=== PATIENT | female | born 1995 | race Caucasian/White ===

== ENCOUNTER 2016-11-07 06:09 | Inpatient (IN) | payer MEDICAID ==
[2016-11-07] MEDS ORDERED: ceFAZolin 2 GM PREMIX (*) 2 GM/50 ML BAG IVPB ONE (06:16)
[2016-11-07] MEDS ORDERED: Sodium Citrate/Citric Acid* 15 ML UDC ONE (07:31)
[2016-11-07] MEDS ORDERED: OXYTOCIN* 10 UNITS/ML 1 ML VIAL ONE (08:58)
[2016-11-07] MEDS ORDERED: Morphine PF AMP (0.5MG/ML)* 5 MG/10 ML AMP ONE (08:58)
[2016-11-07] MEDS ORDERED: Ondansetron INJ* 2 MG/ML VIAL IV PRN ×2 (09:48→09:49)
[2016-11-07] MEDS ORDERED: fentaNYL* 50 MCG/ML 2 ML VIAL (100 MCG VIAL) IV PRN (09:48)
[2016-11-07] MEDS ORDERED: Naloxone* 0.4 MG/ML 1 ML VIAL IV PRN (09:49)
[2016-11-07] MEDS ORDERED: oxyCODONE/Acetamin 5/325 MG* TAB PO PRN (09:49)
[2016-11-07] MEDS ORDERED: Witch Hazel PAD* JAR TOPICAL PRN (10:38)
[2016-11-07] MEDS ORDERED: Acetaminophen TAB* 325 MG PO PRN (10:38)
[2016-11-07] MEDS ORDERED: Dibucaine 1% 28.35 GM TUBE PR PRN (10:38)
[2016-11-07] MEDS ORDERED: Glycerin ADULT SUPP PR PRN (10:38)
[2016-11-07] MEDS ORDERED: Oxytocin in LR* 20 UNITS/1,000 ML BAG IVPB SCH (11:00)
[2016-11-07] MEDS: Ibuprofen TAB* 400 MG PO SCH ×3 (11:03→23:21)
[2016-11-07] MEDS: Nalbuphine* 20 MG/ML 1 ML VIAL IV PRN ×2 (11:36→20:21)
[2016-11-07] MEDS: Docusate CAP* 100 MG PO SCH ×2 (13:59→20:20)
[2016-11-07] MEDS: Simethicone TAB* 80 MG TAB.CHEW PO SCH ×3 (13:59→20:20)
[2016-11-08] MEDS ORDERED: Ibuprofen TAB* 600 MG PO PRN (01:08)
--- NOTE | 2016-11-08 04:06 | OP ---
DATE OF OPERATION: 11/07/16 - ROOM #117 DATE OF : 89 SURGEON: Jarad Neely MD DIRECTOR OF ENTERPRISE STRATEGY: Teresa Franz CNM. ANESTHESIOLOGIST: Dr. Polo Santana ANESTHESIA: Spinal. PRE-OP DIAGNOSIS: 39 weeks and 1 day, prior section, desires elective repeat . POST-OP DIAGNOSIS: 39 weeks and 1 day, prior section, desires elective repeat . OPERATIVE PROCEDURE: Repeat low flap transverse section via Pfannenstiel, uterus closed in 2 layers. ESTIMATED BLOOD LOSS: 600 cc. URINE OUTPUT: 100 cc clear urine. FINDINGS: Viable male in the vertex presentation. Weight was 6 pounds 14 ounces. Apgars are 8 and 9. Clear amniotic fluid. Normal appearing uterus , ovaries and fallopian tubes bilaterally. COMPLICATIONS: None. COUNTS: Sponge, lap, and needle count were correct x2 and the patient was brought to recovery room awake and in stable condition. DESCRIPTION OF PROCEDURE: The patient was brought to the operating room. Once spinal anesthesia was found to be adequate, a Doran catheter was placed under sterile conditions. The patient was prepped and draped in the usual sterile fashion in the dorsal supine position with a leftward tilt. A time-out was performed. The spinal was tested with the Allis clamps and found to be adequate. A Pfannenstiel skin incision was made through the old scar to the underlying layer of fascia. The fascia was incised in the midline and the fascial incision was extended laterally using the Mcdaniel scissors. The fascia was grasped with the Anthony clamps and the rectus muscle was dissected using sharp and blunt dissection. The rectus muscle was found to be in the midline. There was an omental adhesion to the anterior peritoneum. This was clamped with Aileen clamps, incised and tied with a 0-Vicryl suture. Excellent hemostasis was noted. The bladder blade was inserted. The vesicouterine peritoneum was identified and a bladder flap was created. The bladder blade was reinserted. A low-flap transverse incision was made on the uterus to the level of the membranes. The infant was delivered atraumatically from the vertex presentation. Clear amniotic fluid was encountered. The cord was milked , clamped and cut and the infant was handed off to the waiting machine binding folder, Dr. Devapatla. Apgars were 8 and 9. The weight was 6 pounds 14 ounces. The placenta was delivered. The uterus was cleared of all clots and debris and the uterine incision was repaired using 0 Vicryl in a running locked fashion. A second layer of the same suture was used to imbricate and obtain excellent hemostasis. The ovaries and fallopian tubes were examined and found to hemostatic. The abdomen and pelvis were copiously irrigated with warm normal saline. Once again, the uterine incision was examined and found to be hemostatic. The omental adhesion at both ends were examined and found to be hemostatic. The peritoneum was closed using 3-0 Vicryl. The fascia was closed using 0 Vicryl. The subcutaneous tissue was irrigated. Any small bleeders were cauterized with the Bovie and the skin was closed with 4-0 Monocryl in a subcuticular fashion. Steri-Strips were applied. A pressure dressing was applied and the patient was brought to the recovery room awake and in stable condition. A Doran catheter was draining clear urine. [id number]/[facility] #: [id number] MARLO
[2016-11-08] MEDS: oxyCODONE/Acetamin 5/325 MG* TAB PO PRN ×5 (04:19→21:39)
[2016-11-08 08:25] LABS: Hematocrit 35 % (35-47); Hemoglobin 11.6 g/dl (12.0-16.0); Mean Corpuscular HGB Conc 34 g/dl (31-36); Mean Corpuscular Hemoglobin 29 pg (27-31); Mean Corpuscular Volume 87 fL (80-97); Mean Platelet Volume 9 um3 (7.4-10.4); Red Blood Count 4.02 10^6/ul (4.0-5.4); Red Cell Distribution Width 14 % (10.5-15)
[2016-11-08] MEDS: Ferrous Gluconate TAB* 324 MG TAB PO SCH (08:29)
[2016-11-08] MEDS: Simethicone TAB* 80 MG TAB.CHEW PO SCH ×4 (08:45→20:36)
[2016-11-08] MEDS: Docusate CAP* 100 MG PO SCH ×3 (08:45→20:36)
[2016-11-08] MEDS ORDERED: Influenza VAC *QUAD* 2016-17* 0.5 ML SYRINGE IM ONE (09:00)
[2016-11-08] MEDS ORDERED: Tetan/Diph/Pertus SYR(Tdap)* 0.5 ML SYR(BOOSTRIX) use SYR IM ONE (09:00)
[2016-11-09] MEDS: oxyCODONE/Acetamin 5/325 MG* TAB PO PRN ×2 (02:48→08:00)
[2016-11-09] MEDS: Ferrous Gluconate TAB* 324 MG TAB PO SCH ×2 (06:21→09:00)
[2016-11-09] MEDS: Simethicone TAB* 80 MG TAB.CHEW PO SCH (08:03)
[2016-11-09] MEDS: Docusate CAP* 100 MG PO SCH (08:03)
[2016-11-09 08:33] VITALS: BP 108/63
== END 2016-11-09 11:48 | disposition home or self-care (01) | DRG 540 ==
LOC: MCHOB 06:09
PROVIDERS: ADMIT Obstetrics & Gynecology; ATTEND Obstetrics & Gynecology
PROC: 10D00Z1 Extraction of Products of Conception, Low, Open Approach (ICD-10-PCS; principal; 2016-11-07 07:45)
DX: O34.211 Maternal care for low transverse scar from previous cesarean delivery (principal); Z87.891 Personal history of nicotine dependence; Z3A.39 39 weeks gestation of pregnancy; Z37.0 Single live birth
CPT/HCPCS: 36415; 85025; A9270-GY; J0690; J2300; J2590

== ENCOUNTER 2017-01-15 20:33 | Emergency (ER) | payer MEDICAID ==
[2017-01-15 20:36] VITALS: BP 135/45
[2017-01-15] MEDS ORDERED: Polymyx/Trimethoprim OPTH* 10 ML BTL BOTH EYES ONE (20:52)
--- NOTE | 2017-01-15 20:52 | ED ---
Throat Pain/Nasal Congestion - HPI Summary HPI Summary: 21F presents with red eye and discharge since yesterday. She states that she has some yellow drainage yesterday in the left eye and there was crusting and then it spread to the right eye. She states that her eyes feel dry and that feels irritated. She denies any foreign body or change in vision. She does not wear contacts. - History of Current Complaint Chief Complaint: EDEyeProblem Time Seen by Provider: 01/15/17 20:39 - Allergies/Home Medications Allergies/Adverse Reactions: Allergies Allergy/AdvReac Type Severity Reaction Status Date / Time No Known Allergies Allergy Verified 11/06/16 13:24 PMH/Surg Hx/FS Hx/Imm Hx Endocrine/Hematology History: Denies: Hx Anticoagulant Therapy Cardiovascular History: Denies: Hx Hypertension - Surgical History Surgery Procedure, Year, and Place: C section 07/2012 Infectious Disease History: No Infectious Disease History: Denies: History Other Infectious Disease, Traveled Outside the [place] in Last 30 Days - Family History Known Family History: Positive: None, Hypertension - Social History Alcohol Use: None Substance Use Type: Reports: None Smoking Status (MU): Light Every Day Tobacco Smoker Type: Cigarettes Amount Used/How Often: 4 daily Have You Smoked in the Last Year: No Review of Systems Negative: Fever Positive: Drainage, Erythema. Negative: Blurred Vision, Diplopia Negative: Chest Pain Negative: Shortness Of Breath All Other Systems Reviewed And Are Negative: Yes Physical Exam Triage Information Reviewed: Yes Vital Signs On Initial Exam: Initial Vitals Temp Pulse Resp BP Pulse Ox 97.9 F 79 17 135/45 100 01/15/17 20:34 01/15/17 20:34 01/15/17 20:34 01/15/17 20:34 01/15/17 20:34 Vital Signs Reviewed: Yes Appearance: Positive: Well-Appearing Skin: Positive: Warm, Dry Head/Face: Positive: Normal Head/Face Inspection Eyes: Positive: EOMI, MELINDA, Conjunctiva Inflammed ENT: Positive: Normal ENT inspection, Pharynx normal, TMs normal Respiratory/Lung Sounds: Positive: Clear to Auscultation, Breath Sounds Present Cardiovascular: Positive: Normal, RRR Diagnostics - Vital Signs Vital Signs Temp Pulse Resp BP Pulse Ox 01/15/17 20:34 97.9 F 79 17 135/45 100 - Laboratory Lab Statement: Any lab studies that have been ordered have been reviewed, and results considered in the medical decision making process. EENT Course/Dx - Course Course Of Treatment: 21F presents with bilateral eye redness and discharge. started yesterday in left eye and moved to right. states that eyes fell dry and irriated. on exam conjunctiva injected with no visible drainage. denies any foreign body in eye and states no change in vision. does not wear contacts so will treat with polytrim. patient understands and agrees with plan - Differential Diagnoses Differential Diagnoses: Allergic Rhinitis, Conjunctivitis, Corneal Abrasion, URI /Bronchitis - Diagnoses Provider Diagnoses: Conjunctivitis of both eyes Discharge - Discharge Plan Condition: Good Disposition: HOME Patient Education Materials: Conjunctivitis (ED) Referrals: No Primary Care Phys,NOPCP [Primary Care Provider] - Additional Instructions: Place 1 drop in eye four times a day for 7 days Wash hands after touching eye Follow up with ophthalmology if no improvement Return to ED if develop any new or worsening symptoms
== END 2017-01-15 21:07 | disposition home or self-care (01) ==
LOC: ED 20:33
DX: H10.9 Unspecified conjunctivitis (principal)
CPT/HCPCS: 99282

== ENCOUNTER 2017-05-01 08:04 | Emergency (ER) | payer OTHER ==
[2017-05-01 08:13] VITALS: BP 119/70
--- NOTE | 2017-05-01 09:02 | UC ---
Throat Pain/Nasal Moris HPI - HPI Summary HPI Summary: The patient comes in today for: 1. Sore throat: Onset: Yesterday. Palliative/provocative: Swallowing makes it worse. Quality: sharp Region: posterior pharynx. Severity: 8/10 Time: Constant. Associated symptoms: Fevers: None documented. Rhinitis: None. Cough: None. * - History of Current Complaint Chief Complaint: UCGeneralIllness Stated Complaint: SORE THROAT Time Seen by Provider: 05/01/17 08:46 Hx Obtained From: Patient, Family/Agricultural Plow Operator Hx Last Menstrual Period: 04/27/17 - Allergies/Home Medications Allergies/Adverse Reactions: Allergies Allergy/AdvReac Type Severity Reaction Status Date / Time No Known Allergies Allergy Verified 05/01/17 08:08 PMH/Surg Hx/FS Hx/Imm Hx Previously Healthy: Yes Other History Of: Negative For: Anticoagulant Therapy - Surgical History Surgical History: Yes Surgery Procedure, Year, and Place: C section 07/2012, 10/2016 - Family History Known Family History: Positive: Hypertension, Diabetes - Social History Occupation: Unemployed Alcohol Use: None Substance Use Type: None Smoking Status (MU): Light Every Day Tobacco Smoker Type: Cigarettes Amount Used/How Often: 4 daily Have You Smoked in the Last Year: No - Immunization History Most Recent Influenza Vaccination: unknown Most Recent Tetanus Shot: unknown Most Recent Pneumonia Vaccination: none Review of Systems Constitutional: Negative Skin: Negative Eyes: Negative ENT: Sore Throat Respiratory: Negative Cardiovascular: Negative Gastrointestinal: Negative Genitourinary: Negative All Other Systems Reviewed And Are Negative: No Physical Exam Triage Information Reviewed: Yes Appearance: Well-Appearing, No Pain Distress, Well-Nourished Vital Signs: Initial Vital Signs Temp 98.5 F 05/01/17 08:08 Pulse 96 05/01/17 08:08 Resp 16 05/01/17 08:08 BP 119/70 05/01/17 08:08 Pulse Ox 97 05/01/17 08:08 Vital Signs Reviewed: Yes Eyes: Positive: Conjunctiva Clear. Negative: Discharge ENT: Positive: Hearing grossly normal, Pharyngeal erythema. Negative: Nasal congestion, Nasal drainage, TM bulging, TM dull, TM red, Tonsillar swelling, Tonsillar exudate Dental: Negative: Gross Decay/Caries @, Dental Fracture @ Neck: Positive: Supple, Nontender, No Lymphadenopathy. Negative: Nuchal Rigidity Respiratory: Positive: Lungs clear, No respiratory distress, No accessory muscle use. Negative: Rhonchi, Wheezing Cardiovascular: Positive: RRR, No Murmur Abdomen Description: Positive: Nontender, No Organomegaly, Soft. Negative: Distended, Guarding Musculoskeletal: Positive: Strength Intact, ROM Intact, No Edema Neurological: Positive: Alert, Muscle Tone Normal Psychological: Positive: Age Appropriate Behavior, Consolable Skin: Negative: rashes, breakdown Diagnostics - Laboratory Diagnostic Studies Completed/Ordered: Strep (+). Throat Pain/Nasal Course/Dx - Course Course Of Treatment: Patient told of positive strep. Will treat with viscous lidocaine due to her complaint/request. - Differential Dx/Diagnosis Provider Diagnoses: strep pharyngitis Discharge - Discharge Plan Condition: Stable Disposition: HOME Patient Education Materials: Strep Throat (ED) Referrals: No Primary Care Phys,NOPCP [Primary Care Provider] - 1 Week (Please see your primary care provider in about a week to see how well you are doing. If you don't have a primary care provider, please contact the physician referral service. If you can't get in timely, please you may come back to see us until you can. If you get worse, please be seen sooner by us or the ER.) [facility] PHYSICIAN REFERRAL [Outside]
[2017-05-01] MEDS ORDERED: Lidocaine 2% VISCOUS* 15 ML UDC SWISH SWAL ONE (09:30)
== END 2017-05-01 10:14 | disposition home or self-care (01) ==
LOC: UCEAST 08:04
DX: J02.0 Streptococcal pharyngitis (principal); Z72.0 Tobacco use
CPT/HCPCS: 87651; 99212; G0463

== ENCOUNTER 2018-11-02 21:46 | Emergency (ER) | payer OTHER ==
[2018-11-02] MEDS ORDERED: Tetan/Diph/Pertus SYR(Tdap)* 0.5 ML SYR(BOOSTRIX) use SYR IM ONE (21:49)
--- NOTE | 2018-11-02 21:49 | UC ---
Laceration HPI - HPI Summary HPI Summary: 23 yo female presents with RIGHT hand laceration sustained about 20min BOOM MAN. She was putting a top on a ronaldo jar when it broke and lacerated the web spacing between her index finger and thumb. She bandaged the area and came to . Unsure date of last tetanus. - History Of Current Complaint Stated Complaint: FINGER LACERATION Hx Obtained From: Patient Hx Last Menstrual Period: 04/27/17 Laceration Location: Hand Mechanism Of Injury: Sharp Trauma Onset/Duration: Sudden Onset Severity: Moderate Pain Intensity: 6 Pain Scale Used: 0-10 Numeric - Allergies/Home Medications Allergies/Adverse Reactions: Allergies Allergy/AdvReac Type Severity Reaction Status Date / Time No Known Allergies Allergy Verified 05/01/17 08:08 PMH/Surg Hx/FS Hx/Imm Hx - Additional Past Medical History Additional PMH: None Other History Of: Negative For: Anticoagulant Therapy - Surgical History Surgical History: Yes Surgery Procedure, Year, and Place: C section 07/2012, 10/2016 - Family History Known Family History: Positive: Hypertension, Diabetes - Social History Lives: With Family Alcohol Use: None Substance Use Type: None Smoking Status (MU): Light Every Day Tobacco Smoker Type: Cigarettes Amount Used/How Often: 4 daily Have You Smoked in the Last Year: No - Immunization History Most Recent Influenza Vaccination: unknown Most Recent Tetanus Shot: unknown Most Recent Pneumonia Vaccination: none Review of Systems All Other Systems Reviewed And Are Negative: Yes Constitutional: Positive: Negative Skin: Positive: Other - Laceration web space right index and thumb Respiratory: Positive: Negative Cardiovascular: Positive: Negative Neurovascular: Positive: Negative Neurological: Positive: Negative Psychological: Positive: Negative Physical Exam - Summary Physical Exam Summary: GENERAL: NAD. WDWN. No pain distress. SKIN: RIGHT HAND: 1.0cm linear laceration perpendicular to right index finger and thumb web space. CHEST: No accessory muscle use. Breathing comfortably and in no distress. CV: Pulses intact. Cap refill <2seconds NEURO: Alert. PSYCH: Age appropriate behavior. Triage Information Reviewed: Yes Vital Signs: Vital Signs: Temp Pulse Resp BP Pulse Ox 99.0 F 106 20 122/87 100 11/02/18 21:54 11/02/18 21:54 11/02/18 21:54 11/02/18 21:54 11/02/18 21:54 Vital Signs Reviewed: Yes Laceration Repair - Laceration Repair 1 Description: Linear Laceration Size After Repair: Length (cm) - 1.0 Modified For Repair: No Anesthesia Used: 2.0% Lido Cleansing Completed Via Routine Prep: Yes Closure Material: Sutures - FOUR 5-0 Closure Method: Single Layer Suture Of: Skin Suture Type: Prolene Laceration Course/Dx - Course/Dx Course Of Treatment: The procedure was explained to the pt and all questions were answered. A time out was performed, witnessed, and signed. The area was irrigated with 250mL sterile saline. 1mL of 2% lidocaine without epi was administered and good anesthetization was achieved. In the usual sterile fashion , FOUR 5-0 prolene interrupted sutures were placed. The wound was bandaged. Pt tolerated procedure well. tdap updated today - Diagnosis Provider Diagnosis: Laceration of right hand Discharge - Sign-Out/Discharge Documenting (check all that apply): Patient Departure All imaging exams completed and their final reports reviewed: No Studies - Discharge Plan Condition: Stable Disposition: HOME Patient Education Materials: Care For Your Stitches (DC), Laceration (ED) Referrals: No Primary Care Phys,NOPCP [Primary Care Provider] - Additional Instructions: 1) Please keep the area bandaged, clean, dry, and intact for the next 24- 48hours. 2) If you develop a fever, colored or thick discharge, increased pain or swelling - please call your PCP or go to the ED. 3) Please return in 10-12 days to have your FOUR sutures removed. - Billing Disposition and Condition Condition: STABLE Disposition: Home
[2018-11-02] MEDS ORDERED: Lidocaine 2% PF * 5 ML VIAL INJ ONE (21:52)
[2018-11-02 21:56] VITALS: BP 122/87
== END 2018-11-02 22:15 | disposition home or self-care (01) ==
LOC: UCEAST 21:46
DX: S61.411A Laceration without foreign body of right hand, initial encounter (principal); F17.210 Nicotine dependence, cigarettes, uncomplicated; W31.89XA Contact with other specified machinery, initial encounter; Y92.9 Unspecified place or not applicable
CPT/HCPCS: 12001; 90471; 90715; 99211; G0463

== ENCOUNTER 2022-06-10 05:44 | Inpatient (IN) ==
[2022-06-10] MEDS ORDERED: Buffered Lidocaine 1% SYRIN 1 ml INTRADERM ONE (06:00)
[2022-06-10] MEDS ORDERED: ceFOXitin 2 GM PREMIX 50 ML IVPB ONE (06:00)
[2022-06-10] MEDS ORDERED: Lactated Ringers 1000 ml BAG 1,000 ML IV SCH ×2 (06:00→10:00)
[2022-06-10 07:20] LABS: ABS Eosinophils 0.1 10^3/ul (0-0.6); ABS Lymphocytes 1.2 10^3/ul (1.0-4.8); ABS Monocytes 0.4 10^3/ul (0-0.8); ABS Neutrophils 4.6 10^3/ul (1.5-7.7); Hematocrit 33 % (35-47); Hemoglobin 11.5 g/dL (12.0-16.0); Lymphocyte % 19.3 %; Mean Corpuscular HGB Conc 35 g/dL (31-36); Mean Corpuscular Hemoglobin 30 pg (27-31); Mean Corpuscular Volume 86 fL (80-97); Mean Platelet Volume 10.1 fL (7.4-10.4); Platelet Count 184 10^3/uL (150-450); Red Blood Count 3.85 10^6 /uL (3.70-4.87); Red Cell Distribution Width 14 % (10-15); White Blood Count 6.3 10^3/uL (3.5-10.8)
[2022-06-10] MEDS ORDERED: Morphine PF AMP (0.5MG/ML) 5 MG/10 ML AMP ONE (07:41)
[2022-06-10] MEDS ORDERED: fentaNYL 100 mcg/2 ml 50 MCG/ML VIAL ONE (07:41)
[2022-06-10] MEDS ORDERED: Phenylephrine 40 mcg/mL 10mL (400mcg) SYRINGE ONE (07:44)
[2022-06-10] MEDS ORDERED: Oxytocin 10 UNITS/ML 1 ML VIAL ONE (08:08)
[2022-06-10] MEDS ORDERED: Ondansetron 4 mg VIAL 2 MG/ML 2 ml VIAL IV PRN (08:13)
[2022-06-10] MEDS ORDERED: Naloxone 0.4 mg VIAL 0.4 mg/ml 1 ml VIAL IV PRN (08:13)
[2022-06-10] MEDS ORDERED: Witch Hazel PAD JAR TOPICAL PRN (09:26)
[2022-06-10] MEDS ORDERED: Dibucaine 1% OINT 28.35 GM TUBE PR PRN (09:26)
[2022-06-10] MEDS ORDERED: Glycerin ADULT 2.4 gm SUPP PR PRN (09:26)
[2022-06-10] MEDS ORDERED: Oxytocin 10 UNITS/ML 1 ML VIAL IV SCH (10:00)
[2022-06-10 11:05] LABS: Urine Color Straw
[2022-06-10 11:06] LABS: Urine Appearance Clear; Urine Bilirubin Negative (Negative); Urine Blood Negative (Negative); Urine Glucose Negative (Negative); Urine Ketones 2+ (40mg/dL) (Negative); Urine Nitrite Negative (Negative); Urine Protein Negative (Negative); Urine Specific Gravity <=1.005 (1.005-1.030); Urine Urobilinogen 0.2 (Negative) (Negative); Urine pH 6.5 (5.0-9.0)
[2022-06-11 08:10] LABS: ABS Eosinophils 0.1 10^3/ul (0-0.6); ABS Monocytes 0.4 10^3/ul (0-0.8); ABS Neutrophils 6.1 10^3/ul (1.5-7.7); Eosinophil % 0.9 %; Hematocrit 31 % (35-47); Hemoglobin 10.8 g/dL (12.0-16.0); Lymphocyte % 12.7 %; Mean Corpuscular HGB Conc 35 g/dL (31-36); Mean Corpuscular Hemoglobin 30 pg (27-31); Mean Corpuscular Volume 86 fL (80-97); Mean Platelet Volume 9.7 fL (7.4-10.4); Platelet Count 171 10^3/uL (150-450); Red Blood Count 3.59 10^6 /uL (3.70-4.87); Red Cell Distribution Width 14 % (10-15); White Blood Count 7.5 10^3/uL (3.5-10.8)
[2022-06-12 07:58] VITALS: BP 116/78
== END 2022-06-12 10:45 | disposition home or self-care (01) | DRG 540 ==
LOC: MCHOB 05:44
PROVIDERS: ADMIT Obstetrics & Gynecology; ATTEND Obstetrics & Gynecology